=== PATIENT | male | born 1990 | race Caucasian/White ===

== ENCOUNTER 2018-04-23 21:24 | Emergency (ER) | payer SELFPAY ==
[~2018-04-23] VITALS: Ht 177.8 cm; Wt 86.6 kg
[2018-04-23 21:31] VITALS: BP 113/74
--- NOTE | 2018-04-23 21:51 | NUR ---
PT HERE FOR PSYCH MED REFILL. HAS BEEN OFF FOR 3 DAYS. PT DENIES SI/HI. PT DOES NOT HAVE ANY LUCID IDEAS OR RADIC THOUGHTS.
[2018-04-23] MEDS ORDERED: OLANZAPINE 5 MG TABLET ONE (22:16)
--- NOTE | 2018-04-23 22:23 | NUR ---
PT MEDICATED PER EMAR AND GIVEN SANDWHICH AND JUICE.
[2018-04-23] MEDS ORDERED: OLANZAPINE 5 MG TABLET PO ONE (22:30)
[2018-04-23] MEDS ORDERED: hydrOXyzine 10MG TABLET PO ONE (22:30)
--- NOTE | 2018-04-23 22:33 | NUR ---
Patient/Caregiver given discharge instructions and they have confirmed that they understand the instructions. Patient ambulatory with steady gait.
== END 2018-04-23 22:34 | disposition home or self-care (01) ==
LOC: ED 22:27
DX: F20.9 Schizophrenia, unspecified (principal); Z76.0 Encounter for issue of repeat prescription; Z72.9 Problem related to lifestyle, unspecified
CPT/HCPCS: 99283